=== PATIENT | male | born 1935 | race Asian ===

== ENCOUNTER → 2017-04-17 | Outpatient (CLI) | payer MEDICARE ==
[~2017-04-17] MED LIST: ACET-1600 PO; ASPI325T80 PO; CHOL200059 PO; DOXA1TAB2 PO; FINA1TAB16 PO; FINA5TAB4 PO; LISI-170 PO; LISI2.5T PO; METF10002 PO; METF500T4 PO; METO25TA35 PO; SIMV20TA3 PO; SIMV5TAB5 PO; TAMS-11 PO
== END | disposition home or self-care (01) ==
LOC: CFH 10:55
PROVIDERS: ATTEND Specialist
DX: M47.892 Other spondylosis, cervical region (principal); M43.22 Fusion of spine, cervical region; M50.33 Other cervical disc degeneration, cervicothoracic region; M50.321 Other cervical disc degeneration at C4-C5 level; M50.323 Other cervical disc degeneration at C6-C7 level; M48.02 Spinal stenosis, cervical region; M53.82 Other specified dorsopathies, cervical region
CPT/HCPCS: 72125

== ENCOUNTER 2018-04-13 21:09 | Inpatient (IN) | payer MEDICARE ==
[~2018-04-13] VITALS: Ht 167.6 cm; Wt 85.5 kg
[~2018-04-13 21:09] MED LIST changes: +ATROPINE SYRINGE 0.1 MG/ML, 10ML ONE; +EPINEPHRINE SYRINGE 0.1 MG/ML, 10ML ONE; +ETOMIDATE 20 MG/10 ML ONE; +METF500T17 PO; -METF500T4 PO; +MIDAZOLAM 1 MG/ML, 5ML ONE; +SUCCINYLCHOLINE 20 MG/ML, 10ML ONE
[2018-04-13] MEDS ORDERED: ASPIRIN 325 MG TABLET PO STA (21:17)
[2018-04-13] MEDS ORDERED: FUROSEMIDE 40 MG/4 ML ONE (21:27)
[2018-04-13] MEDS ORDERED: SUCCINYLCHOLINE 20 MG/ML, 10ML IVPush ONE (21:30)
[2018-04-13] MEDS ORDERED: SODIUM CHLORIDE FLUSH 10ML SYR IVF ONE (21:30)
[2018-04-13] MEDS ORDERED: SODIUM CHLORIDE 0.9% 1,000ML IVBOLUS ONE ×2 (21:30→22:00)
[2018-04-13] MEDS ORDERED: ETOMIDATE 20 MG/10 ML IV ONE (21:30)
[2018-04-13] MEDS ORDERED: FUROSEMIDE 40 MG/4 ML IV ONE (21:30)
[2018-04-13] MEDS ORDERED: HEPARIN 5,000 UNITS/ML, 1ML ONE (21:36)
[2018-04-13] MEDS: PROPOFOL 100 ML IV PRN (21:45)
[2018-04-13] MEDS: NOREPINEPHRINE 4 MG in SODIUM CHLORIDE 0.9% 246 ML IV PRN (21:45)
[2018-04-13 21:48] LABS: BASOPHILS # (AUTO) 0.07 x10^3/uL (0-0.1); BASOPHILS % (AUTO) 1 % (0-1); EOSINOPHILS # (AUTO) 0.37 x10^3/uL (0-0.4); EOSINOPHILS % (AUTO) 3 % (1-7); LYMPHOCYTES % (AUTO) 27 % (22-44); MD NO; MEAN CORPUSCULAR HGB CONC 33.4 g/dL (33.2-36.2); MEAN CORPUSCULAR VOLUME 95.7 fL (81-97); MEAN PLATELET VOLUME 9.1 fL (7.4-10.4); MONOCYTES # (AUTO) 0.96 x10^3/uL (0.2-0.8); MONOCYTES % (AUTO) 8 % (2-9); NEUTROPHILS # (AUTO) 7.41 x10^3/uL (1.8-6.8); NEUTROPHILS % (AUTO) 62 % (42-75); PLATELET COUNT 209 x10^3/uL (130-400); RED BLOOD COUNT 4.38 x10^6/uL (4.38-5.82); RED CELL DISTRIBUTION WIDTH 13.9 % (9.4-14.8)
[2018-04-13] MEDS ORDERED: PIPERACILLIN/TAZO/PMX 3.375GM 50 ML ONE (21:58)
[2018-04-13 21:59] LABS: INTERNATIONAL NORMALIZED RATIO 0.98 (0.93-1.1); PROTHROMBIN TIME 10.2 Seconds (9.6-11.5)
[2018-04-13] MEDS ORDERED: ATROPINE SYRINGE 0.1 MG/ML, 10ML IVPush ONE (22:00)
[2018-04-13] MEDS ORDERED: PIPERACILLIN/TAZO/PMX 3.375GM 50 ML IVPB ONE (22:00)
[2018-04-13] MEDS ORDERED: VANCOMYCIN PER PHARMACY MC ONE (22:00)
[2018-04-13] MEDS ORDERED: ASPIRIN 300 MG SUPP PR ONE ×2 (22:00)
[2018-04-13] MEDS ORDERED: HEPARIN 5,000 UNITS/ML, 1ML IVPush ONE (22:00)
[2018-04-13] MEDS ORDERED: PHARMACOKINETIC CONSULTATION MC ONE (22:00)
[2018-04-13] MEDS ORDERED: MIDAZOLAM 1 MG/ML, 5ML IVPush ONE (22:00)
[2018-04-13] MEDS ORDERED: PHARMACY MAY ADJ FOR RENAL FX MC SCH (22:30)
[2018-04-13] MEDS ORDERED: BISACODYL 10 MG SUPP PR PRN (22:30)
[2018-04-13] MEDS ORDERED: DOBUTAMINE 250 MG in SODIUM CHLORIDE 0.9% 230 ML IV PRN (22:30)
[2018-04-13] MEDS ORDERED: SENNOSIDES 8.8 MG/5 ML ORAL SOL NG PRN (22:30)
[2018-04-13] MEDS ORDERED: LIDOCAINE-MPF 1%, 2ML ENDO PRN (22:30)
[2018-04-13] MEDS ORDERED: LACTULOSE 20 GM/30 ML UDC NG PRN (22:30)
[2018-04-13] MEDS ORDERED: VANCOMYCIN 1,700 MG in SODIUM CHLORIDE 0.9% 250 ML IV ONE (22:30)
[2018-04-13] MEDS ORDERED: SENNA/DOCUSATE TABLET NG PRN (22:30)
[2018-04-13] MEDS ORDERED: DOBUTAMINE/D5W PMX 250 ML IV PRN (22:30)
[2018-04-13] MEDS ORDERED: PROMETHAZINE 25 MG/ML, 1ML IM PRN (23:00)
[2018-04-13] MEDS ORDERED: NOREPINEPHRINE 4 MG in SODIUM CHLORIDE 0.9% 246 ML IV PRN (23:00)
[2018-04-13] MEDS ORDERED: ONDANSETRON 2MG/ML, 2ML IVPush PRN (23:00)
[2018-04-14 00:02] VITALS: BP 97/62
[2018-04-14 00:07] LABS: ALANINE AMINOTRANSFERASE 25 U/L (12-78); ALBUMIN 3.3 g/dL (3.4-5.0); ANION GAP 13 mmol/L (5-15); CALCIUM 7.8 mg/dL (8.5-10.1); CHLORIDE 107 mmol/L (98-107); CREATININE 1.68 mg/dL (0.7-1.3)
[2018-04-14 00:12] LABS: ALKALINE PHOSPHATASE 31 U/L (45-117); BILIRUBIN,TOTAL 1.1 mg/dL (0.2-1.0); TOTAL PROTEIN 6.7 g/dL (6.4-8.2)
[2018-04-14] MEDS: SODIUM CHLORIDE 0.9% 1,000 ML IV SCH ×2 (00:13→11:36)
[2018-04-14] MEDS: PROPOFOL 100 ML IV PRN ×4 (02:02→16:15)
[2018-04-14] MEDS: NOREPINEPHRINE 4 MG in SODIUM CHLORIDE 0.9% 246 ML IV PRN (02:43)
[2018-04-14 04:00] VITALS: BP 112/59
[2018-04-14 05:23] LABS: BASOPHILS # (AUTO) 0.04 x10^3/uL (0-0.1); BASOPHILS % (AUTO) 0 % (0-1); EOSINOPHILS # (AUTO) 0.02 x10^3/uL (0-0.4); EOSINOPHILS % (AUTO) 0 % (1-7); LYMPHOCYTES # (AUTO) 0.93 x10^3/uL (1-3.4); LYMPHOCYTES % (AUTO) 6 % (22-44); MD NO; MEAN CORPUSCULAR HGB CONC 33.7 g/dL (33.2-36.2); MEAN CORPUSCULAR VOLUME 95.1 fL (81-97); MEAN PLATELET VOLUME 8.3 fL (7.4-10.4); MONOCYTES # (AUTO) 1.09 x10^3/uL (0.2-0.8); MONOCYTES % (AUTO) 7 % (2-9); NEUTROPHILS # (AUTO) 12.69 x10^3/uL (1.8-6.8); NEUTROPHILS % (AUTO) 86 % (42-75); PLATELET COUNT 172 x10^3/uL (130-400); RED BLOOD COUNT 3.66 x10^6/uL (4.38-5.82); RED CELL DISTRIBUTION WIDTH 13.9 % (9.4-14.8)
[2018-04-14] MEDS: NOREPINEPHRINE 8 MG in SODIUM CHLORIDE 0.9% 242 ML IV PRN ×2 (05:43→13:14)
[2018-04-14 05:50] LABS: ALANINE AMINOTRANSFERASE 38 U/L (12-78); ALBUMIN 3.1 g/dL (3.4-5.0); ANION GAP 15 mmol/L (5-15); CALCIUM 7.7 mg/dL (8.5-10.1); CHLORIDE 108 mmol/L (98-107); CREATININE 1.53 mg/dL (0.7-1.3)
[2018-04-14 05:52] LABS: ALKALINE PHOSPHATASE 27 U/L (45-117); BILIRUBIN,TOTAL 0.7 mg/dL (0.2-1.0); TOTAL PROTEIN 6.1 g/dL (6.4-8.2)
[2018-04-14] MEDS ORDERED: HEPARIN 5,000 UNITS/ML, 1ML IV ONE ×2 (06:30→07:00)
[2018-04-14] MEDS: HEPARIN 25,000 UNITS/500ML PMX 500 ML IV PRN (07:26)
[2018-04-14] MEDS ORDERED: PROPOFOL 100 ML IV ONE (08:00)
[2018-04-14] MEDS ORDERED: MAGNESIUM SULFATE PMX 2GM/50ML 50 ML IV ONE (09:00)
[2018-04-14] MEDS: PANTOPRAZOLE 40 MG IV IVPush SCH (09:26)
[2018-04-14] MEDS: ACETAMINOPHEN 650 MG/20.3 ML UDC PO PRN (09:41)
[2018-04-14] MEDS ORDERED: ACETAMINOPHEN 650 MG/20.3 ML UDC ONE (09:41)
[2018-04-14] MEDS ORDERED: PIPERACILLIN/TAZO/PMX 3.375GM 50 ML IV SCH (10:00)
[2018-04-14] MEDS ORDERED: FINA5TAB4 PO (10:42)
[2018-04-14 10:46] LABS: MICROSCOPIC AUTO
[2018-04-14 10:49] LABS: CULTURE INDICATED? YES
[2018-04-14] MEDS: INSULIN LISPRO 100 UNITS/ML, PEN SQ-INSULIN SCH ×3 (11:46→21:00)
[2018-04-14] MEDS: HEPARIN 5,000 UNITS/ML, 1ML IV PRN ×2 (14:45→23:57)
[2018-04-14] MEDS: PIPERACILLIN/TAZO/PMX 4.5GM 100 ML IV SCH ×2 (16:07→22:20)
[2018-04-15] MEDS: PROPOFOL 100 ML IV PRN ×2 (02:08→16:32)
[2018-04-15] MEDS: PIPERACILLIN/TAZO/PMX 4.5GM 100 ML IV SCH ×4 (04:21→21:28)
[2018-04-15 05:38] LABS: ALBUMIN 2.6 g/dL (3.4-5.0); ANION GAP 10 mmol/L (5-15); CALCIUM 7.4 mg/dL (8.5-10.1); CHLORIDE 111 mmol/L (98-107)
[2018-04-15 05:42] LABS: BASOPHILS # (AUTO) 0.03 x10^3/uL (0-0.1); BASOPHILS % (AUTO) 0 % (0-1); EOSINOPHILS # (AUTO) 0.04 x10^3/uL (0-0.4); EOSINOPHILS % (AUTO) 1 % (1-7); LYMPHOCYTES # (AUTO) 1.04 x10^3/uL (1-3.4); LYMPHOCYTES % (AUTO) 12 % (22-44); MD NO; MEAN CORPUSCULAR HEMOGLOBIN 31.9 pg (27.5-34.5); MEAN CORPUSCULAR HGB CONC 33.9 g/dL (33.2-36.2); MEAN PLATELET VOLUME 8.8 fL (7.4-10.4); MONOCYTES # (AUTO) 0.97 x10^3/uL (0.2-0.8); MONOCYTES % (AUTO) 11 % (2-9); NEUTROPHILS # (AUTO) 6.94 x10^3/uL (1.8-6.8); NEUTROPHILS % (AUTO) 77 % (42-75); PLATELET COUNT 125 x10^3/uL (130-400); RED BLOOD COUNT 3.15 x10^6/uL (4.38-5.82); RED CELL DISTRIBUTION WIDTH 14.3 % (9.4-14.8)
[2018-04-15 05:43] LABS: ALANINE AMINOTRANSFERASE 39 U/L (12-78); ALKALINE PHOSPHATASE 21 U/L (45-117); BILIRUBIN,TOTAL 0.7 mg/dL (0.2-1.0); CREATININE 1.29 mg/dL (0.7-1.3); TOTAL PROTEIN 5.6 g/dL (6.4-8.2)
[2018-04-15] MEDS: INSULIN LISPRO 100 UNITS/ML, PEN SQ-INSULIN SCH ×4 (07:00→23:34)
[2018-04-15] MEDS: PANTOPRAZOLE 40 MG IV IVPush SCH (09:55)
[2018-04-15] MEDS ORDERED: POTASSIUM CHLORIDE 10% 40 MEQ/30 ML UDC PO ONE (11:30)
[2018-04-15] MEDS: NOREPINEPHRINE 8 MG in SODIUM CHLORIDE 0.9% 242 ML IV PRN (14:32)
[2018-04-15] MEDS: SODIUM CHLORIDE 0.9% 1,000 ML IV SCH (14:33)
[2018-04-15] MEDS: ACETAMINOPHEN 650 MG/20.3 ML UDC PO PRN (14:35)
[2018-04-15 15:41] LABS: HIT RESULT NEGATIVE (NEGATIVE)
[2018-04-15] MEDS ORDERED: LIDOCAINE-MPF 2%, 2ML MM PRN (16:40)
[2018-04-15] MEDS ORDERED: ATORVASTATIN 40 MG TABLET PO SCH (21:00)
[2018-04-15] MEDS: ATORVASTATIN 40 MG TABLET PO SCH (21:29)
[2018-04-16] MEDS: PROPOFOL 100 ML IV PRN ×3 (02:53→17:53)
[2018-04-16 04:33] LABS: BASOPHILS # (AUTO) 0.06 x10^3/uL (0-0.1); BASOPHILS % (AUTO) 1 % (0-1); EOSINOPHILS % (AUTO) 1 % (1-7); LYMPHOCYTES # (AUTO) 1.06 x10^3/uL (1-3.4); LYMPHOCYTES % (AUTO) 12 % (22-44); MD NO; MEAN CORPUSCULAR HEMOGLOBIN 32.2 pg (27.5-34.5); MEAN CORPUSCULAR HGB CONC 34.1 g/dL (33.2-36.2); MEAN CORPUSCULAR VOLUME 94.6 fL (81-97); MEAN PLATELET VOLUME 8.9 fL (7.4-10.4); MONOCYTES # (AUTO) 0.74 x10^3/uL (0.2-0.8); MONOCYTES % (AUTO) 8 % (2-9); NEUTROPHILS # (AUTO) 7.19 x10^3/uL (1.8-6.8); NEUTROPHILS % (AUTO) 79 % (42-75); PLATELET COUNT 119 x10^3/uL (130-400); RED BLOOD COUNT 3.14 x10^6/uL (4.38-5.82); RED CELL DISTRIBUTION WIDTH 14.4 % (9.4-14.8)
[2018-04-16 04:36] LABS: ANION GAP 10 mmol/L (5-15); CALCIUM 7.4 mg/dL (8.5-10.1); CHLORIDE 111 mmol/L (98-107); CREATININE 1.23 mg/dL (0.7-1.3); TRIGLYCERIDES 357 mg/dL (50-200)
[2018-04-16] MEDS: INSULIN LISPRO 100 UNITS/ML, PEN SQ-INSULIN SCH ×4 (05:10→23:56)
[2018-04-16] MEDS: PIPERACILLIN/TAZO/PMX 4.5GM 100 ML IV SCH ×4 (05:13→21:46)
[2018-04-16] MEDS: HEPARIN 25,000 UNITS/500ML PMX 500 ML IV PRN (05:14)
[2018-04-16] MEDS: HEPARIN 5,000 UNITS/ML, 1ML IV PRN (06:18)
[2018-04-16] MEDS ORDERED: ASPIRIN 81 MG TABLET EC PO SCH (08:00)
[2018-04-16] MEDS ORDERED: ASPIRIN 81 MG TABLET CHEW ONE (08:30)
[2018-04-16] MEDS: ASPIRIN 81 MG TABLET CHEW PO SCH (08:35)
[2018-04-16] MEDS: PANTOPRAZOLE 40 MG IV IVPush SCH (08:36)
[2018-04-16] MEDS ORDERED: FUROSEMIDE 20 MG/2 ML ONE ×2 (09:07→09:28)
[2018-04-16] MEDS ORDERED: MORPHINE SULFATE 4 MG/ML, 1ML ONE (09:29)
[2018-04-16] MEDS ORDERED: MORPHINE SULFATE 4 MG/ML, 1ML IVPush PRN (10:00)
[2018-04-16] MEDS: SODIUM CHLORIDE 0.9% 1,000 ML IV SCH (10:18)
[2018-04-16] MEDS ORDERED: FUROSEMIDE 20 MG/2 ML IV ONE ×3 (11:00→18:30)
[2018-04-16] MEDS: HEPARIN 5,000 UNITS/ML, 1ML SQ SCH ×2 (13:46→21:45)
[2018-04-16] MEDS ORDERED: SUCCINYLCHOLINE 20 MG/ML, 10ML ONE (14:12)
[2018-04-16] MEDS ORDERED: MIDAZOLAM 1 MG/ML, 5ML ONE ×2 (14:12→14:22)
[2018-04-16] MEDS ORDERED: FENTANYL PF 100 MCG/2ML ONE (14:28)
[2018-04-16] MEDS ORDERED: MIDAZOLAM 1 MG/ML, 5ML IVPush ONE (15:00)
[2018-04-16] MEDS ORDERED: FENTANYL PF 100 MCG/2ML IV ONE (15:00)
[2018-04-16 17:58] LABS: ANION GAP 12 mmol/L (5-15); CALCIUM 7.3 mg/dL (8.5-10.1); CHLORIDE 110 mmol/L (98-107); CREATININE 1.29 mg/dL (0.7-1.3)
[2018-04-16] MEDS ORDERED: POTASSIUM CHLORIDE 10% 20 MEQ/15 ML UDC PO ONE (18:30)
[2018-04-16] MEDS ORDERED: ALBUMIN HUMAN 25% 50 ML IV ONE (18:30)
[2018-04-16] MEDS: ATORVASTATIN 40 MG TABLET PO SCH (19:32)
[2018-04-16] MEDS: ACETAMINOPHEN 650 MG/20.3 ML UDC PO PRN (19:38)
[2018-04-17] MEDS: PROPOFOL 100 ML IV PRN ×2 (03:02→19:30)
[2018-04-17] MEDS: PIPERACILLIN/TAZO/PMX 4.5GM 100 ML IV SCH ×4 (04:28→22:34)
[2018-04-17 05:01] LABS: BASOPHILS # (AUTO) 0.04 x10^3/uL (0-0.1); BASOPHILS % (AUTO) 1 % (0-1); EOSINOPHILS # (AUTO) 0.16 x10^3/uL (0-0.4); EOSINOPHILS % (AUTO) 2 % (1-7); LYMPHOCYTES # (AUTO) 0.81 x10^3/uL (1-3.4); LYMPHOCYTES % (AUTO) 9 % (22-44); MD NO; MEAN CORPUSCULAR HEMOGLOBIN 31.7 pg (27.5-34.5); MEAN CORPUSCULAR HGB CONC 33.8 g/dL (33.2-36.2); MEAN CORPUSCULAR VOLUME 93.9 fL (81-97); MEAN PLATELET VOLUME 9.1 fL (7.4-10.4); MONOCYTES # (AUTO) 0.85 x10^3/uL (0.2-0.8); MONOCYTES % (AUTO) 10 % (2-9); NEUTROPHILS # (AUTO) 6.99 x10^3/uL (1.8-6.8); NEUTROPHILS % (AUTO) 79 % (42-75); PLATELET COUNT 128 x10^3/uL (130-400); RED CELL DISTRIBUTION WIDTH 13.8 % (9.4-14.8)
[2018-04-17 05:05] LABS: ANION GAP 12 mmol/L (5-15); CALCIUM 7.3 mg/dL (8.5-10.1); CHLORIDE 114 mmol/L (98-107)
[2018-04-17 05:08] LABS: CREATININE 1.24 mg/dL (0.7-1.3)
[2018-04-17] MEDS: INSULIN LISPRO 100 UNITS/ML, PEN SQ-INSULIN SCH ×4 (05:13→23:06)
[2018-04-17] MEDS: SODIUM CHLORIDE 0.9% 1,000 ML IV SCH (05:47)
[2018-04-17] MEDS: HEPARIN 5,000 UNITS/ML, 1ML SQ SCH ×3 (05:47→22:34)
[2018-04-17] MEDS ORDERED: METOLAZONE 5 MG TABLET ONE (09:18)
[2018-04-17] MEDS ORDERED: AMIODARONE 150 MG in DEXTROSE 5% 100 ML IV ONE (09:30)
[2018-04-17] MEDS ORDERED: AMIODARONE 900 MG in DEXTROSE 5% 482 ML IV PRN (09:30)
[2018-04-17] MEDS ORDERED: FILTER 0.22 MICRON IV PRN (09:30)
[2018-04-17] MEDS: PANTOPRAZOLE 40 MG IV IVPush SCH (09:33)
[2018-04-17] MEDS: ASPIRIN 81 MG TABLET CHEW PO SCH (09:33)
[2018-04-17] MEDS: FUROSEMIDE 20 MG/2 ML IV SCH ×2 (09:33→20:21)
[2018-04-17] MEDS: METOLAZONE 2.5 MG TABLET PO SCH ×2 (09:41→22:34)
[2018-04-17] MEDS: MORPHINE SULFATE 4 MG/ML, 1ML IVPush PRN ×2 (11:29→16:19)
[2018-04-17] MEDS: ACETAMINOPHEN 650 MG/20.3 ML UDC PO PRN (19:53)
[2018-04-17] MEDS: NOREPINEPHRINE 8 MG in SODIUM CHLORIDE 0.9% 242 ML IV PRN (19:53)
[2018-04-17] MEDS: ATORVASTATIN 40 MG TABLET PO SCH (20:21)
[2018-04-18] MEDS: SODIUM CHLORIDE 0.9% 1,000 ML IV SCH ×2 (03:23→23:22)
[2018-04-18] MEDS: PROPOFOL 100 ML IV PRN ×2 (03:23→13:14)
[2018-04-18] MEDS: PIPERACILLIN/TAZO/PMX 4.5GM 100 ML IV SCH ×4 (05:10→21:19)
[2018-04-18 05:25] LABS: BASOPHILS # (AUTO) 0.06 x10^3/uL (0-0.1); BASOPHILS % (AUTO) 1 % (0-1); EOSINOPHILS % (AUTO) 3 % (1-7); LYMPHOCYTES # (AUTO) 1.05 x10^3/uL (1-3.4); LYMPHOCYTES % (AUTO) 12 % (22-44); MD NO; MEAN CORPUSCULAR HEMOGLOBIN 32.3 pg (27.5-34.5); MEAN CORPUSCULAR HGB CONC 34.1 g/dL (33.2-36.2); MEAN CORPUSCULAR VOLUME 94.7 fL (81-97); MEAN PLATELET VOLUME 8.9 fL (7.4-10.4); MONOCYTES # (AUTO) 0.86 x10^3/uL (0.2-0.8); MONOCYTES % (AUTO) 10 % (2-9); NEUTROPHILS # (AUTO) 6.52 x10^3/uL (1.8-6.8); NEUTROPHILS % (AUTO) 74 % (42-75); PLATELET COUNT 130 x10^3/uL (130-400); RED BLOOD COUNT 3.04 x10^6/uL (4.38-5.82); RED CELL DISTRIBUTION WIDTH 13.9 % (9.4-14.8)
[2018-04-18 05:35] LABS: CHLORIDE 109 mmol/L (98-107)
[2018-04-18 05:39] LABS: ANION GAP 13 mmol/L (5-15); CALCIUM 7.4 mg/dL (8.5-10.1); CREATININE 1.35 mg/dL (0.7-1.3)
[2018-04-18] MEDS: INSULIN LISPRO 100 UNITS/ML, PEN SQ-INSULIN SCH ×4 (05:45→23:00)
[2018-04-18] MEDS: HEPARIN 5,000 UNITS/ML, 1ML SQ SCH ×3 (06:05→21:18)
[2018-04-18] MEDS: POTASSIUM CHLORIDE 10% 40 MEQ/30 ML UDC PO SCH ×2 (08:48→21:16)
[2018-04-18] MEDS: FUROSEMIDE 20 MG/2 ML IV SCH ×2 (08:48→21:18)
[2018-04-18] MEDS: PANTOPRAZOLE 40 MG IV IVPush SCH (08:48)
[2018-04-18] MEDS: METOLAZONE 2.5 MG TABLET PO SCH ×2 (08:48→21:16)
[2018-04-18] MEDS: ASPIRIN 81 MG TABLET CHEW PO SCH (08:48)
[2018-04-18] MEDS: ATORVASTATIN 40 MG TABLET PO SCH (21:18)
[2018-04-19] MEDS: PROPOFOL 100 ML IV PRN ×2 (02:22→22:45)
[2018-04-19] MEDS: PIPERACILLIN/TAZO/PMX 4.5GM 100 ML IV SCH (04:31)
[2018-04-19] MEDS: INSULIN LISPRO 100 UNITS/ML, PEN SQ-INSULIN SCH ×4 (05:00→22:49)
[2018-04-19] MEDS: HEPARIN 5,000 UNITS/ML, 1ML SQ SCH ×2 (05:26→17:19)
[2018-04-19 05:37] LABS: BASOPHILS # (AUTO) 0.06 x10^3/uL (0-0.1); BASOPHILS % (AUTO) 1 % (0-1); EOSINOPHILS # (AUTO) 0.26 x10^3/uL (0-0.4); EOSINOPHILS % (AUTO) 4 % (1-7); LYMPHOCYTES # (AUTO) 0.88 x10^3/uL (1-3.4); LYMPHOCYTES % (AUTO) 12 % (22-44); MD NO; MEAN CORPUSCULAR HEMOGLOBIN 32.1 pg (27.5-34.5); MEAN CORPUSCULAR HGB CONC 34.1 g/dL (33.2-36.2); MEAN CORPUSCULAR VOLUME 94.1 fL (81-97); MEAN PLATELET VOLUME 9.2 fL (7.4-10.4); MONOCYTES # (AUTO) 0.65 x10^3/uL (0.2-0.8); MONOCYTES % (AUTO) 9 % (2-9); NEUTROPHILS # (AUTO) 5.26 x10^3/uL (1.8-6.8); NEUTROPHILS % (AUTO) 74 % (42-75); PLATELET COUNT 139 x10^3/uL (130-400); RED BLOOD COUNT 2.97 x10^6/uL (4.38-5.82); RED CELL DISTRIBUTION WIDTH 14.1 % (9.4-14.8)
[2018-04-19 05:48] LABS: ANION GAP 13 mmol/L (5-15); CALCIUM 7.4 mg/dL (8.5-10.1); CHLORIDE 107 mmol/L (98-107)
[2018-04-19 05:50] LABS: CREATININE 1.39 mg/dL (0.7-1.3); TRIGLYCERIDES 140 mg/dL (50-200)
[2018-04-19] MEDS ORDERED: SODIUM CHLORIDE 0.9% 1,000 ML IV ONE (09:28)
[2018-04-19] MEDS: PANTOPRAZOLE 40 MG IV IVPush SCH (11:32)
[2018-04-19] MEDS: AMPICILLIN/SULBACTAM 3 GM in SODIUM CHLORIDE 0.9% 100 ML IV SCH ×3 (11:32→20:55)
[2018-04-19] MEDS: POTASSIUM CHLORIDE 10% 40 MEQ/30 ML UDC PO SCH ×2 (11:33→21:10)
[2018-04-19] MEDS: FUROSEMIDE 20 MG/2 ML IV SCH (11:33)
[2018-04-19] MEDS: ASPIRIN 81 MG TABLET CHEW PO SCH (11:35)
[2018-04-19] MEDS: METOLAZONE 2.5 MG TABLET PO SCH ×2 (11:35→21:10)
[2018-04-19] MEDS: AMIODARONE 200 MG TABLET PO SCH ×2 (11:51→21:10)
[2018-04-19] MEDS ORDERED: ARTIFICIAL TEARS OINT 3.5 GM EACHEYE PRN (13:30)
[2018-04-19] MEDS ORDERED: LIDOCAINE/PF 1%, 30ML ONE (14:33)
[2018-04-19] MEDS ORDERED: BIVALIRUDIN 250 MG ONE (14:34)
[2018-04-19] MEDS ORDERED: TICAGRELOR 90 MG TABLET ONE (14:34)
[2018-04-19] MEDS ORDERED: FENTANYL PF 100 MCG/2ML ONE (14:34)
[2018-04-19] MEDS ORDERED: FUROSEMIDE 40 MG/4 ML IV SCH (21:00)
[2018-04-19] MEDS: ATORVASTATIN 40 MG TABLET PO SCH (21:09)
[2018-04-20] MEDS: HEPARIN 5,000 UNITS/ML, 1ML SQ SCH ×3 (01:00→16:35)
[2018-04-20] MEDS: AMPICILLIN/SULBACTAM 3 GM in SODIUM CHLORIDE 0.9% 100 ML IV SCH ×4 (01:36→20:38)
[2018-04-20 04:49] LABS: BASOPHILS # (AUTO) 0.01 x10^3/uL (0-0.1); BASOPHILS % (AUTO) 0 % (0-1); EOSINOPHILS # (AUTO) 0.22 x10^3/uL (0-0.4); EOSINOPHILS % (AUTO) 3 % (1-7); LYMPHOCYTES % (AUTO) 9 % (22-44); MD NO; MEAN CORPUSCULAR HEMOGLOBIN 32.1 pg (27.5-34.5); MEAN CORPUSCULAR HGB CONC 34.2 g/dL (33.2-36.2); MEAN CORPUSCULAR VOLUME 94.1 fL (81-97); MEAN PLATELET VOLUME 9.4 fL (7.4-10.4); MONOCYTES # (AUTO) 0.79 x10^3/uL (0.2-0.8); MONOCYTES % (AUTO) 10 % (2-9); NEUTROPHILS # (AUTO) 6.38 x10^3/uL (1.8-6.8); NEUTROPHILS % (AUTO) 79 % (42-75); PLATELET COUNT 169 x10^3/uL (130-400); RED BLOOD COUNT 3.04 x10^6/uL (4.38-5.82); RED CELL DISTRIBUTION WIDTH 13.6 % (9.4-14.8)
[2018-04-20 04:58] LABS: ANION GAP 11 mmol/L (5-15); CALCIUM 8.2 mg/dL (8.5-10.1); CHLORIDE 108 mmol/L (98-107); CREATININE 1.45 mg/dL (0.7-1.3)
[2018-04-20] MEDS: INSULIN LISPRO 100 UNITS/ML, PEN SQ-INSULIN SCH ×4 (05:00→23:13)
[2018-04-20] MEDS ORDERED: MAGNESIUM SULFATE PMX 2GM/50ML 50 ML IV ONE (07:30)
[2018-04-20] MEDS: PANTOPRAZOLE 40 MG IV IVPush SCH (09:06)
[2018-04-20] MEDS: POTASSIUM CHLORIDE 20 MEQ TAB.ER.PRT PO SCH ×2 (09:06→16:35)
[2018-04-20] MEDS: AMIODARONE 200 MG TABLET PO SCH ×2 (09:06→20:38)
[2018-04-20] MEDS: ASPIRIN 81 MG TABLET CHEW PO SCH (09:07)
[2018-04-21] MEDS: AMPICILLIN/SULBACTAM 3 GM in SODIUM CHLORIDE 0.9% 100 ML IV SCH ×4 (01:18→20:40)
[2018-04-21] MEDS: HEPARIN 5,000 UNITS/ML, 1ML SQ SCH ×3 (01:19→17:16)
[2018-04-21 04:15] VITALS: BP 120/60
[2018-04-21] MEDS: INSULIN LISPRO 100 UNITS/ML, PEN SQ-INSULIN SCH (05:00)
[2018-04-21 05:08] LABS: BASOPHILS # (AUTO) 0.07 x10^3/uL (0-0.1); BASOPHILS % (AUTO) 1 % (0-1); EOSINOPHILS # (AUTO) 0.25 x10^3/uL (0-0.4); EOSINOPHILS % (AUTO) 3 % (1-7); LYMPHOCYTES # (AUTO) 0.92 x10^3/uL (1-3.4); LYMPHOCYTES % (AUTO) 11 % (22-44); MD NO; MEAN CORPUSCULAR HEMOGLOBIN 30.7 pg (27.5-34.5); MEAN CORPUSCULAR HGB CONC 33.1 g/dL (33.2-36.2); MEAN CORPUSCULAR VOLUME 92.6 fL (81-97); MEAN PLATELET VOLUME 9.1 fL (7.4-10.4); MONOCYTES # (AUTO) 0.73 x10^3/uL (0.2-0.8); MONOCYTES % (AUTO) 9 % (2-9); NEUTROPHILS # (AUTO) 6.05 x10^3/uL (1.8-6.8); NEUTROPHILS % (AUTO) 76 % (42-75); PLATELET COUNT 214 x10^3/uL (130-400); RED BLOOD COUNT 3.26 x10^6/uL (4.38-5.82); RED CELL DISTRIBUTION WIDTH 13.9 % (9.4-14.8)
[2018-04-21 05:14] LABS: ALANINE AMINOTRANSFERASE 87 U/L (12-78); ALBUMIN 2.6 g/dL (3.4-5.0); ANION GAP 11 mmol/L (5-15); CALCIUM 8.5 mg/dL (8.5-10.1); CHLORIDE 108 mmol/L (98-107); CREATININE 1.27 mg/dL (0.7-1.3)
[2018-04-21 05:16] LABS: ALKALINE PHOSPHATASE 24 U/L (45-117); BILIRUBIN,TOTAL 0.6 mg/dL (0.2-1.0); TOTAL PROTEIN 6.4 g/dL (6.4-8.2)
[2018-04-21] MEDS ORDERED: POTASSIUM CHLORIDE 20 MEQ TAB.ER.PRT PO ONE (07:30)
[2018-04-21] MEDS: ASPIRIN 81 MG TABLET CHEW PO SCH (07:44)
[2018-04-21] MEDS: AMIODARONE 200 MG TABLET PO SCH ×4 (07:44→20:58)
[2018-04-21 12:05] VITALS: BP 125/80
[2018-04-21] MEDS ORDERED: SODIUM CHLORIDE 0.9% 1,000 ML IV ONE (16:06)
[2018-04-21 19:53] VITALS: BP 130/71
[2018-04-21] MEDS ORDERED: PRAVASTATIN SODIUM 40 MG TABLET PO SCH (21:00)
[2018-04-21] MEDS ORDERED: ATORVASTATIN 40 MG TABLET PO SCH (21:00)
[2018-04-22] VITALS: BP 135/73
[2018-04-22] MEDS: AMPICILLIN/SULBACTAM 3 GM in SODIUM CHLORIDE 0.9% 100 ML IV SCH ×4 (01:25→22:15)
[2018-04-22] MEDS: HEPARIN 5,000 UNITS/ML, 1ML SQ SCH ×3 (01:25→22:16)
[2018-04-22 07:58] VITALS: BP 133/79
[2018-04-22] MEDS ORDERED: MIDAZOLAM 1 MG/ML, 5ML ONE (08:00)
[2018-04-22] MEDS ORDERED: ETOMIDATE 20 MG/10 ML ONE (08:00)
[2018-04-22] MEDS ORDERED: PROPOFOL 10 MG/ML, 100ML IV ONE (08:00)
[2018-04-22] MEDS: AMIODARONE 200 MG TABLET PO SCH ×3 (08:26→22:15)
[2018-04-22] MEDS: ASPIRIN 81 MG TABLET CHEW PO SCH (08:26)
[2018-04-22] MEDS ORDERED: MIDAZOLAM 1 MG/ML, 2ML ONE (11:43)
[2018-04-22] MEDS ORDERED: FENTANYL PF 100 MCG/2ML ONE (11:43)
[2018-04-22] MEDS ORDERED: LIDOCAINE-MPF 2%, 2ML ONE ×2 (11:44→12:38)
[2018-04-22] MEDS ORDERED: BIVALIRUDIN 250 MG ONE ×2 (11:44→13:35)
[2018-04-22] MEDS ORDERED: HEPARIN 1,000 UNITS/ML, 10ML ONE (11:44)
[2018-04-22] MEDS ORDERED: VERAPAMIL 2.5 MG/ML, 2ML ONE (11:44)
[2018-04-22] MEDS ORDERED: CLOPIDOGREL 300 MG TABLET ONE (12:24)
[2018-04-22] MEDS ORDERED: BUPIVACAINE 0.25% ONE (12:56)
[2018-04-22] MEDS ORDERED: BIVALIRUDIN 250 MG in DEXTROSE 5% 100 ML IV SCH (13:41)
[2018-04-22] MEDS ORDERED: FUROSEMIDE 40 MG/4 ML ONE ×2 (15:20→22:06)
[2018-04-22] MEDS ORDERED: FUROSEMIDE 40 MG/4 ML IV ONE (15:30)
[2018-04-22] MEDS ORDERED: LORazepam 0.5MG TABLET ONE (16:21)
[2018-04-22] MEDS ORDERED: POTASSIUM CHLORIDE 10% 40 MEQ/30 ML UDC ONE (16:22)
[2018-04-22] MEDS: LORazepam 0.5MG TABLET PO PRN ×2 (16:25→21:38)
[2018-04-22] MEDS ORDERED: POTASSIUM CHLORIDE 10% 40 MEQ/30 ML UDC PO ONE (16:30)
[2018-04-22 16:38] LABS: ANION GAP 14 mmol/L (5-15); CALCIUM 8.8 mg/dL (8.5-10.1); CHLORIDE 106 mmol/L (98-107); CREATININE 1.22 mg/dL (0.7-1.3)
[2018-04-22] MEDS ORDERED: FUROSEMIDE 20 MG/2 ML IV ONE (22:30)
[2018-04-22] MEDS ORDERED: PROPOFOL 100 ML IV PRN (23:03)
[2018-04-22] MEDS ORDERED: PHARMACY MAY ADJ FOR RENAL FX MC SCH (23:30)
[2018-04-22] MEDS ORDERED: LIDOCAINE-MPF 1%, 2ML ENDO PRN (23:30)
[2018-04-23 04:00] VITALS: BP 111/54
[2018-04-23] MEDS: AMPICILLIN/SULBACTAM 3 GM in SODIUM CHLORIDE 0.9% 100 ML IV SCH ×2 (04:14→08:15)
[2018-04-23 04:19] LABS: BASOPHILS # (AUTO) 0.36 x10^3/uL (0-0.1); BASOPHILS % (AUTO) 2 % (0-1); EOSINOPHILS % (AUTO) 0 % (1-7); LYMPHOCYTES # (AUTO) 0.58 x10^3/uL (1-3.4); LYMPHOCYTES % (AUTO) 4 % (22-44); MD NO; MEAN CORPUSCULAR HEMOGLOBIN 31.4 pg (27.5-34.5); MEAN CORPUSCULAR HGB CONC 33.6 g/dL (33.2-36.2); MEAN CORPUSCULAR VOLUME 93.5 fL (81-97); MEAN PLATELET VOLUME 8.9 fL (7.4-10.4); MONOCYTES # (AUTO) 0.99 x10^3/uL (0.2-0.8); MONOCYTES % (AUTO) 7 % (2-9); NEUTROPHILS # (AUTO) 13.23 x10^3/uL (1.8-6.8); NEUTROPHILS % (AUTO) 87 % (42-75); PLATELET COUNT 290 x10^3/uL (130-400); RED BLOOD COUNT 3.36 x10^6/uL (4.38-5.82); RED CELL DISTRIBUTION WIDTH 14.1 % (9.4-14.8)
[2018-04-23] MEDS: HEPARIN 5,000 UNITS/ML, 1ML SQ SCH ×3 (04:21→20:55)
[2018-04-23 04:30] LABS: ANION GAP 14 mmol/L (5-15); CALCIUM 8.4 mg/dL (8.5-10.1); CHLORIDE 108 mmol/L (98-107); CREATININE 1.37 mg/dL (0.7-1.3)
[2018-04-23] MEDS: AMIODARONE 200 MG TABLET PO SCH ×3 (08:14→20:55)
[2018-04-23] MEDS: CLOPIDOGREL 75 MG TABLET PO SCH (08:14)
[2018-04-23] MEDS: ASPIRIN 81 MG TABLET CHEW PO SCH (08:14)
[2018-04-23] MEDS ORDERED: PHARMACOKINETIC MONITORING MC PRN (09:00)
[2018-04-23] MEDS ORDERED: PHARMACOKINETIC CONSULTATION MC ONE (09:00)
[2018-04-23] MEDS ORDERED: VANCOMYCIN PER PHARMACY MC PRN (09:00)
[2018-04-23] MEDS: FUROSEMIDE 20 MG/2 ML IV SCH ×2 (09:11→20:55)
[2018-04-23] MEDS: POTASSIUM CHLORIDE 10% 20 MEQ/15 ML UDC PO SCH (09:11)
[2018-04-23] MEDS: PIPERACILLIN/TAZO/PMX 4.5GM 100 ML IV SCH ×3 (09:38→20:54)
[2018-04-23] MEDS: FENTANYL PF 2,500 MCG in SODIUM CHLORIDE 0.9% 200 ML IV PRN (09:38)
[2018-04-23] MEDS ORDERED: VANCOMYCIN 1,700 MG in SODIUM CHLORIDE 0.9% 250 ML IV SCH (10:00)
[2018-04-23] MEDS: PRAVASTATIN 40 MG TABLET PO SCH (20:55)
[2018-04-24 04:00] VITALS: BP 129/85
[2018-04-24] MEDS: PIPERACILLIN/TAZO/PMX 4.5GM 100 ML IV SCH (04:13)
[2018-04-24 04:39] LABS: MEAN CORPUSCULAR HEMOGLOBIN 31.5 pg (27.5-34.5); MEAN CORPUSCULAR HGB CONC 33.4 g/dL (33.2-36.2); MEAN CORPUSCULAR VOLUME 94.3 fL (81-97); MEAN PLATELET VOLUME 8.8 fL (7.4-10.4); PLATELET COUNT 272 x10^3/uL (130-400); RED BLOOD COUNT 3.25 x10^6/uL (4.38-5.82); RED CELL DISTRIBUTION WIDTH 14.4 % (9.4-14.8)
[2018-04-24] MEDS: HEPARIN 5,000 UNITS/ML, 1ML SQ SCH ×3 (05:04→21:19)
[2018-04-24 05:27] LABS: BASOPHILS # (AUTO) 0.04 x10^3/uL (0-0.1); BASOPHILS % (AUTO) 0 % (0-1); EOSINOPHILS # (AUTO) 0.08 x10^3/uL (0-0.4); EOSINOPHILS % (AUTO) 1 % (1-7); LYMPHOCYTES # (AUTO) 0.98 x10^3/uL (1-3.4); LYMPHOCYTES % (AUTO) 8 % (22-44); MD NO; MONOCYTES # (AUTO) 1.25 x10^3/uL (0.2-0.8); MONOCYTES % (AUTO) 11 % (2-9); NEUTROPHILS % (AUTO) 80 % (42-75)
[2018-04-24 08:18] LABS: CREATININE 1.59 mg/dL (0.7-1.3)
[2018-04-24] MEDS ORDERED: PIPERACILLIN/TAZO/PMX 4.5GM 100 ML IV SCH (09:00)
[2018-04-24] MEDS: POTASSIUM CHLORIDE 10% 20 MEQ/15 ML UDC PO SCH (09:32)
[2018-04-24] MEDS: AMIODARONE 200 MG TABLET PO SCH ×3 (09:33→21:04)
[2018-04-24] MEDS: ASPIRIN 81 MG TABLET CHEW PO SCH (09:33)
[2018-04-24] MEDS: FUROSEMIDE 20 MG/2 ML IV SCH ×2 (09:33→21:06)
[2018-04-24] MEDS: CLOPIDOGREL 75 MG TABLET PO SCH (09:33)
[2018-04-24] MEDS: PIPERACILLIN/TAZO/PMX 3.375GM 50 ML IV SCH ×2 (15:36→21:04)
[2018-04-24] MEDS: PRAVASTATIN 40 MG TABLET PO SCH (21:04)
[2018-04-24] MEDS ORDERED: POLYETHYLENE GLYCOL 17 GM PACKET NG PRN (22:00)
[2018-04-24] MEDS ORDERED: DOCUSATE 50 MG/5 ML, 10ML UDC PO PRN (22:00)
[2018-04-24] MEDS ORDERED: BISACODYL 10 MG SUPP PR PRN (22:00)
[2018-04-25] MEDS: PIPERACILLIN/TAZO/PMX 3.375GM 50 ML IV SCH ×4 (03:10→20:43)
[2018-04-25 04:00] VITALS: BP 139/67
[2018-04-25 04:22] LABS: BASOPHILS # (AUTO) 0.23 x10^3/uL (0-0.1); BASOPHILS % (AUTO) 2 % (0-1); EOSINOPHILS # (AUTO) 0.06 x10^3/uL (0-0.4); EOSINOPHILS % (AUTO) 1 % (1-7); LYMPHOCYTES # (AUTO) 0.62 x10^3/uL (1-3.4); LYMPHOCYTES % (AUTO) 6 % (22-44); MD NO; MEAN CORPUSCULAR HEMOGLOBIN 30.8 pg (27.5-34.5); MEAN CORPUSCULAR VOLUME 93.3 fL (81-97); MEAN PLATELET VOLUME 8.8 fL (7.4-10.4); MONOCYTES # (AUTO) 0.93 x10^3/uL (0.2-0.8); MONOCYTES % (AUTO) 9 % (2-9); NEUTROPHILS # (AUTO) 8.83 x10^3/uL (1.8-6.8); NEUTROPHILS % (AUTO) 83 % (42-75); PLATELET COUNT 283 x10^3/uL (130-400); RED BLOOD COUNT 3.02 x10^6/uL (4.38-5.82); RED CELL DISTRIBUTION WIDTH 14.2 % (9.4-14.8)
[2018-04-25] MEDS: HEPARIN 5,000 UNITS/ML, 1ML SQ SCH ×3 (05:00→20:43)
[2018-04-25 08:46] LABS: ALANINE AMINOTRANSFERASE 48 U/L (12-78); ALBUMIN 2.5 g/dL (3.4-5.0); ANION GAP 11 mmol/L (5-15); CALCIUM 8.6 mg/dL (8.5-10.1); CHLORIDE 108 mmol/L (98-107); CREATININE 1.58 mg/dL (0.7-1.3)
[2018-04-25 08:49] LABS: ALKALINE PHOSPHATASE 23 U/L (45-117); BILIRUBIN,TOTAL 0.7 mg/dL (0.2-1.0); TOTAL PROTEIN 6.2 g/dL (6.4-8.2)
[2018-04-25] MEDS: AMIODARONE 200 MG TABLET PO SCH (09:06)
[2018-04-25] MEDS: POTASSIUM CHLORIDE 10% 20 MEQ/15 ML UDC PO SCH (09:06)
[2018-04-25] MEDS: FUROSEMIDE 20 MG/2 ML IV SCH ×2 (09:06→20:42)
[2018-04-25] MEDS: ASPIRIN 81 MG TABLET CHEW PO SCH (09:06)
[2018-04-25] MEDS: CLOPIDOGREL 75 MG TABLET PO SCH (09:06)
[2018-04-25] MEDS ORDERED: POTASSIUM CHLORIDE 10% 40 MEQ/30 ML UDC PO ONE (11:30)
[2018-04-25] MEDS: LORazepam 0.5MG TABLET PO PRN (20:08)
[2018-04-25] MEDS: PRAVASTATIN 40 MG TABLET PO SCH (20:42)
[2018-04-26] MEDS: PIPERACILLIN/TAZO/PMX 3.375GM 50 ML IV SCH ×4 (03:18→21:05)
[2018-04-26 04:00] VITALS: BP 102/49
[2018-04-26 04:36] LABS: BASOPHILS # (AUTO) 0.03 x10^3/uL (0-0.1); BASOPHILS % (AUTO) 0 % (0-1); EOSINOPHILS # (AUTO) 0.21 x10^3/uL (0-0.4); EOSINOPHILS % (AUTO) 2 % (1-7); LYMPHOCYTES # (AUTO) 0.78 x10^3/uL (1-3.4); LYMPHOCYTES % (AUTO) 7 % (22-44); MD NO; MEAN CORPUSCULAR HEMOGLOBIN 31.5 pg (27.5-34.5); MEAN CORPUSCULAR HGB CONC 33.6 g/dL (33.2-36.2); MEAN CORPUSCULAR VOLUME 93.7 fL (81-97); MEAN PLATELET VOLUME 9.1 fL (7.4-10.4); MONOCYTES # (AUTO) 0.89 x10^3/uL (0.2-0.8); MONOCYTES % (AUTO) 8 % (2-9); NEUTROPHILS # (AUTO) 9.33 x10^3/uL (1.8-6.8); NEUTROPHILS % (AUTO) 83 % (42-75); PLATELET COUNT 296 x10^3/uL (130-400); RED BLOOD COUNT 3.01 x10^6/uL (4.38-5.82); RED CELL DISTRIBUTION WIDTH 14.9 % (9.4-14.8)
[2018-04-26 04:41] LABS: ANION GAP 8 mmol/L (5-15); CALCIUM 8.3 mg/dL (8.5-10.1); CHLORIDE 109 mmol/L (98-107); CREATININE 1.57 mg/dL (0.7-1.3)
[2018-04-26] MEDS: HEPARIN 5,000 UNITS/ML, 1ML SQ SCH ×3 (05:00→19:08)
[2018-04-26] MEDS ORDERED: POTASSIUM CHLORIDE 10% 40 MEQ/30 ML UDC PO ONE (08:30)
[2018-04-26] MEDS: FUROSEMIDE 20 MG/2 ML IV SCH ×2 (08:43→21:05)
[2018-04-26] MEDS: ASPIRIN 81 MG TABLET CHEW PO SCH (08:43)
[2018-04-26] MEDS: POTASSIUM CHLORIDE 10% 20 MEQ/15 ML UDC PO SCH (08:43)
[2018-04-26] MEDS: CLOPIDOGREL 75 MG TABLET PO SCH (08:43)
[2018-04-26] MEDS: AMIODARONE 200 MG TABLET PO SCH (08:45)
[2018-04-26] MEDS: LORazepam 0.5MG TABLET PO PRN (09:24)
[2018-04-26] MEDS: PANTOPRAZOLE 40 MG IV IVPush SCH (09:24)
[2018-04-26] MEDS ORDERED: CETACAINE 50ML TP PRN (15:00)
[2018-04-26] MEDS: PRAVASTATIN 40 MG TABLET PO SCH (21:05)
[2018-04-26] MEDS: FENTANYL PF 2,500 MCG in SODIUM CHLORIDE 0.9% 200 ML IV PRN (22:31)
[2018-04-27] MEDS: PIPERACILLIN/TAZO/PMX 3.375GM 50 ML IV SCH ×4 (03:38→21:19)
[2018-04-27] MEDS: HEPARIN 5,000 UNITS/ML, 1ML SQ SCH ×3 (04:09→21:25)
[2018-04-27 04:28] LABS: ALBUMIN 2.4 g/dL (3.4-5.0); ANION GAP 6 mmol/L (5-15); CALCIUM 8.6 mg/dL (8.5-10.1); CHLORIDE 111 mmol/L (98-107)
[2018-04-27 04:32] LABS: ALANINE AMINOTRANSFERASE 63 U/L (12-78); ALKALINE PHOSPHATASE 24 U/L (45-117); BILIRUBIN,TOTAL 0.7 mg/dL (0.2-1.0); CREATININE 1.42 mg/dL (0.7-1.3); TOTAL PROTEIN 6.2 g/dL (6.4-8.2)
[2018-04-27 04:33] LABS: BASOPHILS # (AUTO) 0.05 x10^3/uL (0-0.1); BASOPHILS % (AUTO) 0 % (0-1); EOSINOPHILS # (AUTO) 0.19 x10^3/uL (0-0.4); EOSINOPHILS % (AUTO) 2 % (1-7); LYMPHOCYTES # (AUTO) 0.68 x10^3/uL (1-3.4); LYMPHOCYTES % (AUTO) 6 % (22-44); MD NO; MEAN CORPUSCULAR HGB CONC 33.7 g/dL (33.2-36.2); MEAN CORPUSCULAR VOLUME 94.8 fL (81-97); MEAN PLATELET VOLUME 9.2 fL (7.4-10.4); MONOCYTES # (AUTO) 0.79 x10^3/uL (0.2-0.8); MONOCYTES % (AUTO) 7 % (2-9); NEUTROPHILS # (AUTO) 10.33 x10^3/uL (1.8-6.8); NEUTROPHILS % (AUTO) 86 % (42-75); PLATELET COUNT 273 x10^3/uL (130-400); RED BLOOD COUNT 2.97 x10^6/uL (4.38-5.82); RED CELL DISTRIBUTION WIDTH 14.6 % (9.4-14.8)
[2018-04-27] MEDS: PANTOPRAZOLE 40 MG IV IVPush SCH (08:03)
[2018-04-27] MEDS: FUROSEMIDE 20 MG/2 ML IV SCH ×2 (08:03→21:18)
[2018-04-27] MEDS: ASPIRIN 81 MG TABLET CHEW PO SCH (08:04)
[2018-04-27] MEDS: CLOPIDOGREL 75 MG TABLET PO SCH (08:04)
[2018-04-27] MEDS: AMIODARONE 200 MG TABLET PO SCH (08:04)
[2018-04-27] MEDS: POTASSIUM CHLORIDE 10% 20 MEQ/15 ML UDC PO SCH (08:04)
[2018-04-27] MEDS: INSULIN LISPRO 100 UNITS/ML, PEN SQ-INSULIN SCH ×3 (10:10→21:20)
[2018-04-27] MEDS: PRAVASTATIN 40 MG TABLET PO SCH (21:18)
[2018-04-28] MEDS: PIPERACILLIN/TAZO/PMX 3.375GM 50 ML IV SCH ×4 (03:51→21:52)
[2018-04-28] MEDS: INSULIN LISPRO 100 UNITS/ML, PEN SQ-INSULIN SCH ×4 (03:52→21:56)
[2018-04-28 04:31] LABS: BASOPHILS # (AUTO) 0.01 x10^3/uL (0-0.1); BASOPHILS % (AUTO) 0 % (0-1); EOSINOPHILS # (AUTO) 0.35 x10^3/uL (0-0.4); EOSINOPHILS % (AUTO) 3 % (1-7); LYMPHOCYTES # (AUTO) 0.79 x10^3/uL (1-3.4); LYMPHOCYTES % (AUTO) 7 % (22-44); MD NO; MEAN CORPUSCULAR HEMOGLOBIN 30.8 pg (27.5-34.5); MEAN CORPUSCULAR HGB CONC 32.4 g/dL (33.2-36.2); MEAN CORPUSCULAR VOLUME 95.2 fL (81-97); MEAN PLATELET VOLUME 9.3 fL (7.4-10.4); MONOCYTES # (AUTO) 0.58 x10^3/uL (0.2-0.8); MONOCYTES % (AUTO) 5 % (2-9); NEUTROPHILS # (AUTO) 9.34 x10^3/uL (1.8-6.8); NEUTROPHILS % (AUTO) 84 % (42-75); PLATELET COUNT 277 x10^3/uL (130-400); RED CELL DISTRIBUTION WIDTH 15.4 % (9.4-14.8)
[2018-04-28 04:43] LABS: ANION GAP 9 mmol/L (5-15); CALCIUM 8.8 mg/dL (8.5-10.1); CHLORIDE 110 mmol/L (98-107); CREATININE 1.27 mg/dL (0.7-1.3); TRIGLYCERIDES 126 mg/dL (50-200)
[2018-04-28] MEDS: HEPARIN 5,000 UNITS/ML, 1ML SQ SCH ×3 (05:32→21:53)
[2018-04-28] MEDS: CLOPIDOGREL 75 MG TABLET PO SCH (07:47)
[2018-04-28] MEDS: POTASSIUM CHLORIDE 10% 20 MEQ/15 ML UDC PO SCH (07:48)
[2018-04-28] MEDS: PANTOPRAZOLE 40 MG IV IVPush SCH (07:48)
[2018-04-28] MEDS: AMIODARONE 200 MG TABLET PO SCH (07:48)
[2018-04-28] MEDS: FUROSEMIDE 20 MG/2 ML IV SCH ×2 (07:49→21:53)
[2018-04-28] MEDS: ASPIRIN 81 MG TABLET CHEW PO SCH (08:02)
[2018-04-28] MEDS: INSULIN GLARGINE 100 UNITS/ML, PEN SQ-INSULIN SCH (10:02)
[2018-04-28] MEDS: PRAVASTATIN 40 MG TABLET PO SCH (21:52)
[2018-04-29] MEDS: PIPERACILLIN/TAZO/PMX 3.375GM 50 ML IV SCH ×4 (03:17→21:52)
[2018-04-29] MEDS: INSULIN LISPRO 100 UNITS/ML, PEN SQ-INSULIN SCH ×4 (04:19→23:52)
[2018-04-29 04:38] LABS: BASOPHILS # (AUTO) 0.04 x10^3/uL (0-0.1); BASOPHILS % (AUTO) 0 % (0-1); EOSINOPHILS # (AUTO) 0.36 x10^3/uL (0-0.4); EOSINOPHILS % (AUTO) 3 % (1-7); LYMPHOCYTES # (AUTO) 0.82 x10^3/uL (1-3.4); LYMPHOCYTES % (AUTO) 7 % (22-44); MD NO; MEAN CORPUSCULAR HEMOGLOBIN 31.7 pg (27.5-34.5); MEAN CORPUSCULAR HGB CONC 33.1 g/dL (33.2-36.2); MEAN CORPUSCULAR VOLUME 95.8 fL (81-97); MEAN PLATELET VOLUME 9.1 fL (7.4-10.4); MONOCYTES # (AUTO) 0.98 x10^3/uL (0.2-0.8); MONOCYTES % (AUTO) 8 % (2-9); NEUTROPHILS # (AUTO) 9.97 x10^3/uL (1.8-6.8); NEUTROPHILS % (AUTO) 82 % (42-75); PLATELET COUNT 268 x10^3/uL (130-400); RED BLOOD COUNT 3.09 x10^6/uL (4.38-5.82); RED CELL DISTRIBUTION WIDTH 15.1 % (9.4-14.8)
[2018-04-29 04:49] LABS: ALANINE AMINOTRANSFERASE 66 U/L (12-78); ALBUMIN 2.6 g/dL (3.4-5.0); ANION GAP 7 mmol/L (5-15); CALCIUM 8.7 mg/dL (8.5-10.1); CHLORIDE 109 mmol/L (98-107)
[2018-04-29 04:51] LABS: ALKALINE PHOSPHATASE 27 U/L (45-117); BILIRUBIN,TOTAL 0.8 mg/dL (0.2-1.0); CREATININE 1.22 mg/dL (0.7-1.3); TOTAL PROTEIN 6.8 g/dL (6.4-8.2)
[2018-04-29] MEDS: HEPARIN 5,000 UNITS/ML, 1ML SQ SCH ×3 (05:35→21:52)
[2018-04-29] MEDS: POTASSIUM CHLORIDE 10% 20 MEQ/15 ML UDC PO SCH (10:41)
[2018-04-29] MEDS: CLOPIDOGREL 75 MG TABLET PO SCH (10:42)
[2018-04-29] MEDS: ASPIRIN 81 MG TABLET CHEW PO SCH (10:43)
[2018-04-29] MEDS: AMIODARONE 200 MG TABLET PO SCH (10:44)
[2018-04-29] MEDS: FUROSEMIDE 20 MG/2 ML IV SCH ×2 (10:49→21:52)
[2018-04-29] MEDS: PANTOPRAZOLE 40 MG IV IVPush SCH (10:58)
[2018-04-29] MEDS: INSULIN GLARGINE 100 UNITS/ML, PEN SQ-INSULIN SCH (11:27)
[2018-04-29] MEDS: PRAVASTATIN 40 MG TABLET PO SCH (21:52)
[2018-04-30] MEDS ORDERED: ETOMIDATE 40 MG/20 ML ONE
[2018-04-30] MEDS: PIPERACILLIN/TAZO/PMX 3.375GM 50 ML IV SCH ×4 (03:27→22:01)
[2018-04-30] MEDS ORDERED: ALBUTEROL/IPRATROPIUM 2.5MG/0.5MG, 3 ML ONE (04:07)
[2018-04-30 05:46] LABS: BASOPHILS # (AUTO) 0.06 x10^3/uL (0-0.1); BASOPHILS % (AUTO) 0 % (0-1); EOSINOPHILS # (AUTO) 0.21 x10^3/uL (0-0.4); EOSINOPHILS % (AUTO) 1 % (1-7); LYMPHOCYTES # (AUTO) 0.57 x10^3/uL (1-3.4); LYMPHOCYTES % (AUTO) 4 % (22-44); MD NO; MEAN CORPUSCULAR HEMOGLOBIN 31.8 pg (27.5-34.5); MEAN CORPUSCULAR HGB CONC 33.3 g/dL (33.2-36.2); MEAN CORPUSCULAR VOLUME 95.6 fL (81-97); MEAN PLATELET VOLUME 9.2 fL (7.4-10.4); MONOCYTES % (AUTO) 6 % (2-9); NEUTROPHILS # (AUTO) 13.12 x10^3/uL (1.8-6.8); NEUTROPHILS % (AUTO) 88 % (42-75); PLATELET COUNT 283 x10^3/uL (130-400); RED BLOOD COUNT 3.11 x10^6/uL (4.38-5.82); RED CELL DISTRIBUTION WIDTH 15.6 % (9.4-14.8)
[2018-04-30 05:52] LABS: CHLORIDE 108 mmol/L (98-107)
[2018-04-30 06:01] LABS: ALANINE AMINOTRANSFERASE 55 U/L (12-78); ALBUMIN 2.5 g/dL (3.4-5.0); ALKALINE PHOSPHATASE 24 U/L (45-117); ANION GAP 11 mmol/L (5-15); BILIRUBIN,TOTAL 0.9 mg/dL (0.2-1.0); CALCIUM 8.7 mg/dL (8.5-10.1); CREATININE 1.27 mg/dL (0.7-1.3); TOTAL PROTEIN 6.6 g/dL (6.4-8.2)
[2018-04-30] MEDS: INSULIN LISPRO 100 UNITS/ML, PEN SQ-INSULIN SCH ×4 (06:13→23:43)
[2018-04-30] MEDS: HEPARIN 5,000 UNITS/ML, 1ML SQ SCH ×3 (06:13→21:00)
[2018-04-30] MEDS: FUROSEMIDE 20 MG/2 ML IV SCH (09:00)
[2018-04-30] MEDS: ASPIRIN 81 MG TABLET CHEW PO SCH (09:25)
[2018-04-30] MEDS: CLOPIDOGREL 75 MG TABLET PO SCH (09:25)
[2018-04-30] MEDS: AMIODARONE 200 MG TABLET PO SCH (09:27)
[2018-04-30] MEDS: PANTOPRAZOLE 40 MG IV IVPush SCH (09:29)
[2018-04-30] MEDS: POTASSIUM CHLORIDE 10% 20 MEQ/15 ML UDC PO SCH (09:29)
[2018-04-30] MEDS: INSULIN GLARGINE 100 UNITS/ML, PEN SQ-INSULIN SCH (09:41)
[2018-04-30] MEDS: ALBUMIN HUMAN 25% 100 ML IV SCH ×2 (10:39→22:38)
[2018-04-30] MEDS ORDERED: ROCURONIUM 10MG/ML,5ML ONE (15:26)
[2018-04-30] MEDS ORDERED: HEPARIN 1,000 UNITS/ML, 10ML ONE (16:23)
[2018-04-30] MEDS ORDERED: PROTAMINE SULFATE 10 MG/ML, 5ML ONE (16:23)
[2018-04-30] MEDS ORDERED: DOBUTAMINE 250 MG in SODIUM CHLORIDE 0.9% 230 ML IV PRN (18:30)
[2018-04-30] MEDS ORDERED: DOBUTAMINE/D5W PMX 250 ML IV PRN (18:50)
[2018-04-30] MEDS: PRAVASTATIN 40 MG TABLET PO SCH (22:01)
[2018-05-01] MEDS: FUROSEMIDE 20 MG/2 ML IV SCH ×3 (00:08→21:13)
[2018-05-01] MEDS: PIPERACILLIN/TAZO/PMX 3.375GM 50 ML IV SCH (03:15)
[2018-05-01] MEDS: HEPARIN 5,000 UNITS/ML, 1ML SQ SCH ×3 (05:00→21:00)
[2018-05-01] MEDS: INSULIN LISPRO 100 UNITS/ML, PEN SQ-INSULIN SCH ×4 (05:06→23:29)
[2018-05-01 05:42] LABS: ALBUMIN 2.9 g/dL (3.4-5.0); ANION GAP 8 mmol/L (5-15); CALCIUM 8.3 mg/dL (8.5-10.1); CHLORIDE 109 mmol/L (98-107)
[2018-05-01 05:47] LABS: ALANINE AMINOTRANSFERASE 39 U/L (12-78); ALKALINE PHOSPHATASE 20 U/L (45-117); BILIRUBIN,TOTAL 0.9 mg/dL (0.2-1.0); CREATININE 1.29 mg/dL (0.7-1.3); TOTAL PROTEIN 6.3 g/dL (6.4-8.2)
[2018-05-01 05:58] LABS: BASOPHILS # (AUTO) 0.02 x10^3/uL (0-0.1); BASOPHILS % (AUTO) 0 % (0-1); EOSINOPHILS # (AUTO) 0.09 x10^3/uL (0-0.4); EOSINOPHILS % (AUTO) 1 % (1-7); LYMPHOCYTES # (AUTO) 0.62 x10^3/uL (1-3.4); LYMPHOCYTES % (AUTO) 5 % (22-44); MD NO; MEAN CORPUSCULAR HEMOGLOBIN 31.5 pg (27.5-34.5); MEAN CORPUSCULAR HGB CONC 33.2 g/dL (33.2-36.2); MEAN CORPUSCULAR VOLUME 95.1 fL (81-97); MEAN PLATELET VOLUME 9.4 fL (7.4-10.4); MONOCYTES # (AUTO) 1.03 x10^3/uL (0.2-0.8); MONOCYTES % (AUTO) 9 % (2-9); NEUTROPHILS # (AUTO) 9.74 x10^3/uL (1.8-6.8); NEUTROPHILS % (AUTO) 85 % (42-75); PLATELET COUNT 203 x10^3/uL (130-400); RED BLOOD COUNT 2.45 x10^6/uL (4.38-5.82); RED CELL DISTRIBUTION WIDTH 15.4 % (9.4-14.8)
[2018-05-01] MEDS: ALBUMIN HUMAN 25% 100 ML IV SCH ×2 (09:20→16:46)
[2018-05-01] MEDS: AMIODARONE 200 MG TABLET PO SCH (09:21)
[2018-05-01] MEDS: ASPIRIN 81 MG TABLET CHEW PO SCH (09:21)
[2018-05-01] MEDS: CLOPIDOGREL 75 MG TABLET PO SCH (09:21)
[2018-05-01] MEDS: PANTOPRAZOLE 40 MG IV IVPush SCH (09:36)
[2018-05-01] MEDS: POTASSIUM CHLORIDE 10% 20 MEQ/15 ML UDC PO SCH (09:36)
[2018-05-01] MEDS: INSULIN GLARGINE 100 UNITS/ML, PEN SQ-INSULIN SCH (09:36)
[2018-05-01] MEDS ORDERED: FILTER 0.22 MICRON FOR AMIODARONE IV PRN (10:30)
[2018-05-01] MEDS ORDERED: AMIODARONE 150 MG in DEXTROSE 5% 100 ML IV ONE (10:30)
[2018-05-01] MEDS: AMIODARONE 900 MG in DEXTROSE 5% 482 ML IV PRN (10:45)
[2018-05-01] MEDS ORDERED: DOBUTAMINE/D5W PMX 250 ML IV PRN (18:50)
[2018-05-01] MEDS: PRAVASTATIN 40 MG TABLET PO SCH (21:12)
[2018-05-02 04:48] LABS: MEAN CORPUSCULAR HEMOGLOBIN 31.3 pg (27.5-34.5); MEAN CORPUSCULAR HGB CONC 32.8 g/dL (33.2-36.2); MEAN CORPUSCULAR VOLUME 95.6 fL (81-97); MEAN PLATELET VOLUME 9.6 fL (7.4-10.4); PLATELET COUNT 200 x10^3/uL (130-400); RED BLOOD COUNT 2.54 x10^6/uL (4.38-5.82); RED CELL DISTRIBUTION WIDTH 16.7 % (9.4-14.8)
[2018-05-02 04:59] LABS: ALANINE AMINOTRANSFERASE 35 U/L (12-78); ALBUMIN 3.3 g/dL (3.4-5.0); ANION GAP 11 mmol/L (5-15); CALCIUM 8.5 mg/dL (8.5-10.1); CHLORIDE 105 mmol/L (98-107); CREATININE 1.37 mg/dL (0.7-1.3)
[2018-05-02] MEDS: HEPARIN 5,000 UNITS/ML, 1ML SQ SCH ×3 (04:59→21:55)
[2018-05-02] MEDS: INSULIN LISPRO 100 UNITS/ML, PEN SQ-INSULIN SCH ×4 (05:00→23:30)
[2018-05-02 05:02] LABS: ALKALINE PHOSPHATASE 18 U/L (45-117); BILIRUBIN,TOTAL 1.1 mg/dL (0.2-1.0)
[2018-05-02 05:57] LABS: BASOPHILS # (AUTO) 0.14 x10^3/uL (0-0.1); BASOPHILS % (AUTO) 1 % (0-1); EOSINOPHILS # (AUTO) 0.04 x10^3/uL (0-0.4); EOSINOPHILS % (AUTO) 0 % (1-7); LYMPHOCYTES # (AUTO) 0.86 x10^3/uL (1-3.4); LYMPHOCYTES % (AUTO) 7 % (22-44); MD SCAN; MONOCYTES # (AUTO) 1.29 x10^3/uL (0.2-0.8); MONOCYTES % (AUTO) 10 % (2-9); NEUTROPHILS # (AUTO) 11.04 x10^3/uL (1.8-6.8); NEUTROPHILS % (AUTO) 83 % (42-75)
[2018-05-02] MEDS ORDERED: AMIODARONE 150 MG in DEXTROSE 5% 100 ML IV ONE (07:30)
[2018-05-02] MEDS ORDERED: MIDAZOLAM 1 MG/ML, 2ML IV ONE (07:30)
[2018-05-02] MEDS ORDERED: FENTANYL PF 100 MCG/2ML IV ONE (07:30)
[2018-05-02] MEDS: ALBUMIN HUMAN 25% 100 ML IV SCH ×2 (07:30→20:05)
[2018-05-02] MEDS ORDERED: AMIODARONE 50 MG/ML, 3ML IVPush ONE (07:30)
[2018-05-02] MEDS ORDERED: ALBUMIN HUMAN 25% 100 ML IV SCH (08:00)
[2018-05-02] MEDS: ASPIRIN 81 MG TABLET CHEW PO SCH (08:10)
[2018-05-02] MEDS: POTASSIUM CHLORIDE 10% 20 MEQ/15 ML UDC PO SCH (08:10)
[2018-05-02] MEDS: CLOPIDOGREL 75 MG TABLET PO SCH (08:10)
[2018-05-02] MEDS: PANTOPRAZOLE 40 MG IV IVPush SCH (08:10)
[2018-05-02] MEDS: FUROSEMIDE 20 MG/2 ML IV SCH ×2 (09:49→21:55)
[2018-05-02] MEDS: INSULIN GLARGINE 100 UNITS/ML, PEN SQ-INSULIN SCH (09:50)
[2018-05-02] MEDS: AMIODARONE 900 MG in DEXTROSE 5% 482 ML IV PRN (10:12)
[2018-05-02] MEDS ORDERED: MIDAZOLAM 1 MG/ML, 2ML IVPush ONE (10:30)
[2018-05-02] MEDS ORDERED: DIGOXIN 0.25 MG/ML, 2ML ONE (12:31)
[2018-05-02] MEDS ORDERED: DIGOXIN 0.25 MG/ML, 2ML IVPush ONE (13:00)
[2018-05-02] MEDS ORDERED: PROPOFOL 100 ML IV ONE (17:06)
[2018-05-02] MEDS: PROPOFOL 100 ML IV PRN (17:08)
[2018-05-02] MEDS ORDERED: MIDAZOLAM 1 MG/ML, 2ML ONE (17:09)
[2018-05-02] MEDS: PRAVASTATIN 40 MG TABLET PO SCH (21:54)
[2018-05-03 04:49] LABS: MEAN CORPUSCULAR VOLUME 96.9 fL (81-97); MEAN PLATELET VOLUME 9.7 fL (7.4-10.4); PLATELET COUNT 170 x10^3/uL (130-400); RED BLOOD COUNT 2.34 x10^6/uL (4.38-5.82); RED CELL DISTRIBUTION WIDTH 16.6 % (9.4-14.8)
[2018-05-03 04:51] LABS: ANION GAP 11 mmol/L (5-15); CALCIUM 8.3 mg/dL (8.5-10.1); CHLORIDE 106 mmol/L (98-107); CREATININE 1.66 mg/dL (0.7-1.3)
[2018-05-03 04:56] LABS: BASOPHILS # (AUTO) 0.03 x10^3/uL (0-0.1); BASOPHILS % (AUTO) 0 % (0-1); EOSINOPHILS # (AUTO) 0.05 x10^3/uL (0-0.4); EOSINOPHILS % (AUTO) 0 % (1-7); LYMPHOCYTES # (AUTO) 0.95 x10^3/uL (1-3.4); LYMPHOCYTES % (AUTO) 6 % (22-44); MD SCAN; MONOCYTES # (AUTO) 1.23 x10^3/uL (0.2-0.8); MONOCYTES % (AUTO) 8 % (2-9); NEUTROPHILS # (AUTO) 12.95 x10^3/uL (1.8-6.8); NEUTROPHILS % (AUTO) 85 % (42-75)
[2018-05-03] MEDS: INSULIN LISPRO 100 UNITS/ML, PEN SQ-INSULIN SCH ×4 (05:11→23:00)
[2018-05-03] MEDS: HEPARIN 5,000 UNITS/ML, 1ML SQ SCH ×3 (05:14→21:07)
[2018-05-03] MEDS: PROPOFOL 100 ML IV PRN (05:19)
[2018-05-03] MEDS: ALBUMIN HUMAN 25% 100 ML IV SCH ×3 (08:59→23:00)
[2018-05-03] MEDS ORDERED: INSULIN GLARGINE 100 UNITS/ML, PEN SQ-INSULIN SCH (09:00)
[2018-05-03] MEDS ORDERED: FUROSEMIDE 100 MG in SODIUM CHLORIDE 0.9% 90 ML IV SCH (10:00)
[2018-05-03] MEDS: POTASSIUM CHLORIDE 10% 20 MEQ/15 ML UDC PO SCH (10:06)
[2018-05-03] MEDS: PANTOPRAZOLE 40 MG IV IVPush SCH (10:06)
[2018-05-03] MEDS: ASPIRIN 81 MG TABLET CHEW PO SCH (10:09)
[2018-05-03] MEDS: FUROSEMIDE 20 MG/2 ML IV SCH ×2 (10:09→21:03)
[2018-05-03] MEDS: CLOPIDOGREL 75 MG TABLET PO SCH (10:09)
[2018-05-03 10:20] LABS: MEAN CORPUSCULAR HEMOGLOBIN 31.2 pg (27.5-34.5); MEAN CORPUSCULAR HGB CONC 32.8 g/dL (33.2-36.2); MEAN CORPUSCULAR VOLUME 95.4 fL (81-97); MEAN PLATELET VOLUME 9.6 fL (7.4-10.4); PLATELET COUNT 169 x10^3/uL (130-400); RED CELL DISTRIBUTION WIDTH 16.3 % (9.4-14.8)
[2018-05-03 10:21] LABS: HEMOGRAM NOTE RECHECKED
[2018-05-03 10:23] LABS: ANION GAP 8 mmol/L (5-15); CALCIUM 8.5 mg/dL (8.5-10.1); CHLORIDE 107 mmol/L (98-107); CREATININE 1.66 mg/dL (0.7-1.3)
[2018-05-03 10:39] LABS: BASOPHILS # (AUTO) 0.01 x10^3/uL (0-0.1); BASOPHILS % (AUTO) 0 % (0-1); EOSINOPHILS # (AUTO) 0.04 x10^3/uL (0-0.4); EOSINOPHILS % (AUTO) 0 % (1-7); LYMPHOCYTES # (AUTO) 0.85 x10^3/uL (1-3.4); LYMPHOCYTES % (AUTO) 5 % (22-44); MD MORPH REVIEW ONLY; MONOCYTES # (AUTO) 1.32 x10^3/uL (0.2-0.8); MONOCYTES % (AUTO) 8 % (2-9); NEUTROPHILS # (AUTO) 14.08 x10^3/uL (1.8-6.8); NEUTROPHILS % (AUTO) 86 % (42-75)
[2018-05-03 10:40] LABS: <PLATELET ESTIMATE> ADEQUATE; <PLT MORPHOLOGY> NORMAL PLT MORPH; ANISOCYTOSIS 1+; HYPOCHROMIA 1+; POLYCHROMASIA 1+
[2018-05-03] MEDS ORDERED: AMIODARONE 50 MG/ML, 3ML IVPush ONE (12:30)
[2018-05-03] MEDS: MIDAZOLAM 1 MG/ML, 5ML IVPush PRN ×2 (12:35→19:45)
[2018-05-03] MEDS ORDERED: AMIODARONE 150 MG in DEXTROSE 5% 100 ML IV ONE (13:00)
[2018-05-03] MEDS ORDERED: METOLAZONE 2.5 MG TABLET PO SCH (17:00)
[2018-05-03] MEDS: AMIODARONE 900 MG in DEXTROSE 5% 482 ML IV PRN (19:23)
[2018-05-03 20:33] LABS: ANION GAP 16 mmol/L (5-15); CALCIUM 8.5 mg/dL (8.5-10.1); CHLORIDE 106 mmol/L (98-107); CREATININE 2.22 mg/dL (0.7-1.3)
[2018-05-03] MEDS: PRAVASTATIN 40 MG TABLET PO SCH (21:06)
[2018-05-04] MEDS: MIDAZOLAM 1 MG/ML, 5ML IVPush PRN (02:00)
[2018-05-04] MEDS: FENTANYL PF 2,500 MCG in SODIUM CHLORIDE 0.9% 200 ML IV PRN (02:07)
[2018-05-04] MEDS ORDERED: FUROSEMIDE 100 MG in SODIUM CHLORIDE 0.9% 90 ML IV SCH (09:00)
== END 2018-05-04 03:25 | disposition expired | DRG 853 ==
LOC: ED 22:33 → SUATTDRO 22:49 → EDIP 22:59 → CCU 23:27 → 5SO 04-21 11:41 → CCU 04-22 15:40
PROVIDERS: ADMIT Hospitalist; ATTEND Hospitalist
PROC: 0BH17EZ Insertion of Endotracheal Airway into Trachea, Via Natural or Artificial Opening (ICD-10-PCS; 2018-04-13)
PROC: 5A1945Z Respiratory Ventilation, 24-96 Consecutive Hours (ICD-10-PCS; 2018-04-13)
PROC: 02HV33Z Insertion of Infusion Device into Superior Vena Cava, Percutaneous Approach (ICD-10-PCS; 2018-04-13)
PROC: B548ZZA Ultrasonography of Superior Vena Cava, Guidance (ICD-10-PCS; 2018-04-13)
PROC: 0T9B70Z Drainage of Bladder with Drainage Device, Via Natural or Artificial Opening (ICD-10-PCS; 2018-04-14)
PROC: 5A09357 Assistance with Respiratory Ventilation, Less than 24 Consecutive Hours, Continuous Positive Airway Pressure (ICD-10-PCS; 2018-04-16)
PROC: 0BH18EZ Insertion of Endotracheal Airway into Trachea, Via Natural or Artificial Opening Endoscopic (ICD-10-PCS; 2018-04-16)
PROC: 5A1945Z Respiratory Ventilation, 24-96 Consecutive Hours (ICD-10-PCS; 2018-04-16)
PROC: 0B9F8ZX Drainage of Right Lower Lung Lobe, Via Natural or Artificial Opening Endoscopic, Diagnostic (ICD-10-PCS; 2018-04-16)
PROC: 4A023N8 Measurement of Cardiac Sampling and Pressure, Bilateral, Percutaneous Approach (ICD-10-PCS; 2018-04-19)
PROC: B2111ZZ Fluoroscopy of Multiple Coronary Arteries using Low Osmolar Contrast (ICD-10-PCS; 2018-04-19)
PROC: B2151ZZ Fluoroscopy of Left Heart using Low Osmolar Contrast (ICD-10-PCS; 2018-04-19)
PROC: 5A1955Z Respiratory Ventilation, Greater than 96 Consecutive Hours (ICD-10-PCS; principal; 2018-04-22)
PROC: 0BH18EZ Insertion of Endotracheal Airway into Trachea, Via Natural or Artificial Opening Endoscopic (ICD-10-PCS; 2018-04-22)
PROC: 027035Z Dilation of Coronary Artery, One Artery with Two Drug-eluting Intraluminal Devices, Percutaneous Approach (ICD-10-PCS; 2018-04-22)
PROC: B4101ZZ Fluoroscopy of Abdominal Aorta using Low Osmolar Contrast (ICD-10-PCS; 2018-04-22)
PROC: 5A09357 Assistance with Respiratory Ventilation, Less than 24 Consecutive Hours, Continuous Positive Airway Pressure (ICD-10-PCS; 2018-04-22)
PROC: B41D1ZZ Fluoroscopy of Aorta and Bilateral Lower Extremity Arteries using Low Osmolar Contrast (ICD-10-PCS; 2018-04-22)
PROC: 4A023N8 Measurement of Cardiac Sampling and Pressure, Bilateral, Percutaneous Approach (ICD-10-PCS; 2018-04-30)
PROC: B2151ZZ Fluoroscopy of Left Heart using Low Osmolar Contrast (ICD-10-PCS; 2018-04-30)
PROC: B4101ZZ Fluoroscopy of Abdominal Aorta using Low Osmolar Contrast (ICD-10-PCS; 2018-04-30)
PROC: BT131ZZ Fluoroscopy of Bilateral Kidneys using Low Osmolar Contrast (ICD-10-PCS; 2018-04-30)
PROC: 5A2204Z Restoration of Cardiac Rhythm, Single (ICD-10-PCS; 2018-05-02)
DX: A41.9 Sepsis, unspecified organism (principal); I21.4 Non-ST elevation (NSTEMI) myocardial infarction; J96.01 Acute respiratory failure with hypoxia; R65.21 Severe sepsis with septic shock; I50.43 Acute on chronic combined systolic (congestive) and diastolic (congestive) heart failure; J69.0 Pneumonitis due to inhalation of food and vomit; N17.0 Acute kidney failure with tubular necrosis; Z99.11 Dependence on respirator [ventilator] status; D68.69 Other thrombophilia; E87.0 Hyperosmolality and hypernatremia; I42.9 Cardiomyopathy, unspecified; J98.11 Atelectasis; N02.9 Recurrent and persistent hematuria with unspecified morphologic changes; I11.0 Hypertensive heart disease with heart failure; I25.10 Atherosclerotic heart disease of native coronary artery without angina pectoris; C61 Malignant neoplasm of prostate; D64.9 Anemia, unspecified; E11.9 Type 2 diabetes mellitus without complications; E78.5 Hyperlipidemia, unspecified; E87.6 Hypokalemia; F40.240 Claustrophobia; G89.29 Other chronic pain; H35.109 Retinopathy of prematurity, unspecified, unspecified eye; I08.0 Rheumatic disorders of both mitral and aortic valves; I27.20 Pulmonary hypertension, unspecified; I48.0 Paroxysmal atrial fibrillation; I70.0 Atherosclerosis of aorta; M60.9 Myositis, unspecified; N20.0 Calculus of kidney; R04.0 Epistaxis; R13.10 Dysphagia, unspecified; Z51.5 Encounter for palliative care; Z66 Do not resuscitate; Z79.02 Long term (current) use of antithrombotics/antiplatelets; Z79.4 Long term (current) use of insulin; Z79.82 Long term (current) use of aspirin; Z82.3 Family history of stroke; Z98.1 Arthrodesis status; M54.2 Cervicalgia
CPT/HCPCS: 0399T; 31624; 36253; 36415; 36600; 71045; 74230; 75625; 76770; 80047; 80048; 80053; 81001; 82330; 82565; 82607; 82803; 82805; 82962; 83605; 83735; 83880; 84100; 84132; 84145; 84443; 84478; 84484; 85014; 85018; 85025; 85520; 85610; 85730; 86022; 87015; 87040; 87070; 87081; 87086; 87102; 87116; 87205; 87206; 93005; 93306; 93308; 93312; 93321; 93325; 93453; 93454; 93460; 94002; 94003; 94150; 94640; 94660; 96361; 96365; 96366; 96368; 96375; 99156; 99157; C1760; C1769; C1894; C9600; G0378; J0295; J0461; J0583; J1644; J1940; J2250; J2405; J2543; J2704; J2720; J3010; J3370; J3490; P9047; C1725; C1874; C1887; C9113; J0282; J0330; J1160; J1250; J1815; J3475; J7030; J7050; J7060; Q9967